=== PATIENT | male | born 1945 | race Caucasian/White ===

== ENCOUNTER 2016-12-27 06:48 | Observation (INO) ==
--- NOTE | 2016-12-27 07:14 | EKG Report ---
Stationary ECG Study [facility] ER Test Date: 12/27/2016 6:53:47 AM Pat Name: MICHELLE LARIOS Department: Room: Gender: M [employer] Records Supervisor: : 1945 Requested by: Sudarshan Mckeon Order Number: [id number] Reading MD: JOYCE LAWRENCE Intervals [place] Rate: 72 P: 41 LA: 177 QRS: 39 QRSD: 98 T: 38 QT: 381 QTc: 405 Interpretive Statements SINUS RHYTHM at 72 bpm WNL Electronically Signed On 12-30-16 12:08:00 CDT by JOYCE LAWRENCE [email or web address]
[2016-12-27 07:32] LABS: Basophils % 0.1 % (0.0-0.8); Hematocrit 31.8 VOL% (42.0-52.0); Hemoglobin 9.8 GM/DL (14.0-18.0); Immature Granulocytes % 0.5 %; Immature Granulocytes Absolute 0.09 #; Lymphocytes # 0.8 10*3/uL (1.4-4.0); Mean Corpuscular HGB Conc 30.8 GM/DL (32-36); Mean Corpuscular Hemoglobin 28 PG (27-34); Mean Corpuscular Volume 90.6 FL (87-102); Mean Platelet Volume 9.4 FL (9.6-12.0); Monocytes # 0.6 10*3/uL (0.11-0.8); Monocytes % 3.5 % (1.7-12.7); Neutrophils # 15.2 10*3/uL (1.4-7.4); Neutrophils % 90.9 % (38.7-73.9); Platelet Count 234 T/CUMM (130-400); Red Blood Count 3.51 MC/CUMM (3.8-5.5); Red Cell Distribution Width 13.9 % (9.3-17.3); White Blood Count 16.7 T/CUMM (4-12)
[2016-12-27] MEDS ORDERED: ENOXAPARIN 100 MG/ML SYRINGE SUBCUT STA (07:49)
[2016-12-27 07:57] LABS: Band Neutrophils 1 % (0-10); Hypochromasia 1+; Lymphocytes 4 % (20-55); Microcytosis 1+; Ovalocytes Few; Segmented Neutrophils 92 % (50-85); Total Cells Counted 100
[2016-12-27 07:58] LABS: Platelet Estimate Normal
[2016-12-27] MEDS ORDERED: ENOXAPARIN 100 MG/ML SYRINGE SUBCUT ONE (08:01)
[2016-12-27 08:02] LABS: Alanine Aminotransferase 24 U/L (16-61); Albumin 3.5 G/DL (3.4-5.0); Alkaline Phosphatase 66 U/L (45-117); Aspartate Amino Transferase 13 U/L (0-37); Bilirubin,Total < 0.39 MG/DL (0.2-1.0); Blood Urea Nitrogen 35 MG/DL (7-18); Calcium 8.6 MG/DL (8.5-10.1); Glucose 153 MG/DL (74-106); Magnesium 2.2 MG/DL (1.8-2.4); Osmolality,Calculated 285.7 MOS/KG (273-304); Potassium 5.6 MMOL/L (3.5-5.1); Sodium 138 MMOL/L (136-145); Total Protein 6.9 G/DL (6.4-8.3); Troponin I Only < 0.015 NG/ML (0.00-0.045)
--- NOTE | 2016-12-27 08:05 | XRay Report ---
XR chest 2V Indication: Chest pain Comparison: Chest x-ray dated October 12, 2016 Technique: Frontal and lateral views of the chest. Findings: Continued mild cardiomegaly without jim pulmonary edema. Chronic change of the lungs. Moderate hiatal hernia. Visualized osseous and surrounding soft tissue structures appear grossly unchanged. IMPRESSION: As above. PROCEDURE INTERPRETED AT [facility] DEPARTMENT OF RADIOLOGY Final Report Signed by: Dr Lon Burrell
--- NOTE | 2016-12-27 08:32 | Emergency Department Note ---
Alen Brown Manpreet, am scribing for, and in the presence of, Sudarshan Sullivan MD 07:54. Laurie Brown Phillip K, MD, personally performed the services described in this documentation, ascribed by Addison Lowry in my presence, and it is both accurate and complete 832 . Arrival - Arrival Chief Complaint: Chest Pain Stated Complaint: chest pain down left arm ED Nursing Triage Note: pt to triage with c/o chest pain radiating to left arm. Mode of Arrival: Ambulatory Limitations: No Limitations Source: Patient - History of Present Illness HPI Narrative: Pt is a 72 y/o male, with PMHx of HTN, SD, CAD, CVA, NIDDM, HLD, PNA, and GERD, who presents to the ED with CC of CP radiating to his left arm onset last night at 1900. Pt was just sitting around when the pain onset. Pt also c/o SOB and nausea, but denies fever, cough, RUBIO, or diaphoresis. Pt is currently in pain and describes the pain as 7/10 and sharp to the left side of his chest. Dr. Cooper is the pt's bar catcher and had a heart catheterziation in which showed October angioplasty in ostial lesion of the circumflex. Pt has not taken his Plavix for the past 5 days and [facility]. Pt states his pain is worse upon movement. No other pains/complaints reported to the ED. Allergies/Adverse Reactions: Allergies Allergy/AdvReac Type Severity Reaction Status Date / Time No Known Allergies Allergy Verified 12/27/16 06:55 Home Medications: Home Medications Medication Instructions Recorded Confirmed Type Aspirin [Ecotrin] 81 mg PO QAM 01/19/15 12/27/16 History Atorvastatin Calcium 40 mg PO DAILY 01/19/15 12/27/16 History Dorzolamide 2% Oph Soln [Trusopt 1 drop BOTH EYES BID 01/19/15 12/27/16 History 2% Oph Soln] Clopidogrel [Plavix] 75 mg PO DAILY #30 tablet 01/20/15 12/27/16 Rx Magnesium Oxide 400 mg PO BID #60 tablet 01/20/15 12/27/16 Rx Metformin HCl 1,000 mg PO BID W/MEALS #0 01/20/15 12/27/16 Rx Nitroglycerin Sl Tab [Nitrostat] 0.4 mg SL Q5M PRN #100 tablet 01/20/15 Rx Latanoprost [Latanoprost 0.005 % 1 drop BOTH EYES BID 09/27/15 12/27/16 History Oph Soln] Lisinopril 10 mg PO DAILY 09/27/15 12/27/16 History Metoprolol Tartrate Tab [Lopressor 12.5 mg PO BID 09/27/15 12/27/16 History Tab] glipiZIDE [Glipizide] 10 mg PO BID 09/27/15 12/27/16 History HYDROcodone/ACETAMIN 10-325 [Crook 1 tablet PO QID PRN 12/27/15 12/27/16 History 10-325] Ondansetron [Ondansetron Odt] 8 mg PO Q4H PRN #20 tab.rapdis 02/21/16 12/27/16 Rx Pantoprazole Tab [Protonix Tab] 40 mg PO DAILY 02/21/16 12/27/16 History clonazePAM [Clonazepam] 0.5 mg PO BEDTIME 10/12/16 12/27/16 History Review of System - Review of System 12 point system: reviewed and no additional remarkable complaints except as stated - Review of System Constitutional: Absent: chills, diaphoresis, fever Respiratory: Absent: cough, respiratory distress, wheezing Cardiovascular: Present: chest pain Gastrointestinal: Absent: abdominal pain, nausea, vomiting Musculoskeletal: Present: arm pain Neurological: Absent: headache, weakness, numbness, paresthesias Medical,Surgical,& Family Hx - Medical History Cardio: History of: Cardiac Dysrhythmia, CAD, Hypertension, SD (at age of 40), Cardiovascular Problems (stent placed in Oct to LAD. Dr. Cooper) Neurology: History of: Cerebrovascular Accident (left sided 2 months ago) No history of: Seizures HEENT: History of: Eye Problem, Glaucoma No history of: Ear Problem, Dental Problems, Oral Cancer, HEENT Problems Endocrine: History of: Diabetes Mellitus (NIDDM), Dyslipidemia No history of: Adrenal Disease, Diabetes Mellitus (IDDM), Thyroid Disorder, Endocrine Cancer, Endocrine Problems Respiratory: History of: Pneumonia Renal: History of: Renal Problems Genitourinary: History of: Kidney Stones, Prostate Problems (hx of prostate CA) Gastrointestinal: History of: GERD, GI Problems (Gallbladder surgery) Musculoskeletal: History of: Back/Neck Problems (pinched nerve and 2 spurs in neck), Degenerative Disk Disease, Herniated Disk (2 disks in lower back), Musculoskeletal Problems (Arthritis) Other: History of: Cancer (Prostate) - Surgical History Cardiac Surgeries: Sugical HX of: Cardiac Catheterization (stent) Neurologic Surgeries: Patient denies: Neurologic Surgery HEENT Surgeries: Surgical HX of: Eye Surgery (Nerve surgery R/T glaucoma) Abdominal Surgeries: Surgical HX of: Abdominal Surgery, Cholecystectomy, Colonoscopy (last year), EGD Reproductive Surgeries: Surgical HX of;: Genitourinary Surgery, Prostate Surgery (Prostate CA removal Dr. Mills in 2001) - Family History Family History: Reports;: Family Cancer (daughter, son, sisters), Family Diabetes (Daughter, mother, sisters), Family Heart Disease (Father, brother, mother, sisters), Family Hypertension (Father, Mother, Sister, Brother), Family Stroke (Mother and Sister) - Social History Smoking Status: Former smoker Frequency of Alcohol Use: None Type of Drug Use: None Exam Vital Signs: Vital Signs Temperature 97.9 F 12/27/16 06:51 Pulse Rate 60 12/27/16 08:00 Respiratory Rate 16 12/27/16 08:00 Blood Pressure 118/55 12/27/16 08:00 O2 Sat by Pulse Oximetry 99 12/27/16 08:00 - General General appearance: alert, in no apparent distress - Head Head exam: Present: atraumatic, normocephalic, normal inspection - Eye Eye exam: Present: normal appearance, PERRL, EOMI - ENT ENT exam: Present: normal exam, normal oropharynx, mucous membranes moist, TM's normal bilaterally - Neck Neck exam: Present: normal inspection, full ROM, trachea midline. Absent: tenderness - Chest Chest inspection: Present: normal inspection, symmetric chest wall rise. Absent : tenderness - Respiratory Respiratory exam: Present: normal lung sounds bilaterally. Absent: accessory muscle use, respiratory distress - Cardiovascular Cardiovascular exam: Present: regular rate, normal rhythm, murmur (2/6 systolic murmur ). Absent: normal heart sounds - Abdominal Exam Abdominal exam: Present: soft, normal bowel sounds. Absent: distention, tenderness - Extremities Exam Extremities exam: Present: normal inspection, full ROM. Absent: tenderness - Back Exam Back exam: Present: normal inspection, full ROM. Absent: tenderness - Neurological Exam Neurological exam: Present: alert, oriented X3, CN II-XII intact, reflexes normal - Psychiatric Psychiatric exam: Present: normal affect, normal mood - Skin Skin exam: Present: warm, dry, intact, normal color. Absent: pallor Results - Labs CBC & BMP: 12/27/16 07:06 12/27/16 07:06 Lab Results: I have reviewed the patients labs Labs: Laboratory Tests 12/27/16 07:06 WBC 16.7 H RBC 3.51 L Hgb 9.8 L Hct 31.8 L MCV 90.6 MCH 28 MCHC 30.8 L RDW 13.9 Plt Count 234 MPV 9.4 L Neut % (Auto) 90.9 H Lymph % (Auto) 5.0 L Neut # (Auto) 15.2 H Lymph # (Auto) 0.8 L Laboratory Tests 12/27/16 07:06 Total Counted 100 Segmented Neutrophils 92 H Band Neutrophils 1 Lymphocytes 4 L Monocytes 3 Platelet Estimate Normal Hypochromasia 1+ Microcytosis 1+ Ovalocytes Few Laboratory Tests 12/27/16 12/27/16 07:06 07:06 Sodium 138 Potassium 5.6 H Chloride 108 H Carbon Dioxide 23 Anion Gap 12.6 BUN 35 H Creatinine 1.40 H GFR Calculation 58 BUN/Creatinine Ratio 25.00 H Glucose 153 H Calculated Osmolality 285.7 Calcium 8.6 Magnesium 2.2 Total Bilirubin < 0.39 AST 13 ALT 24 Alkaline Phosphatase 66 Troponin I < 0.015 B-Natriuretic Peptide 145 H Total Protein 6.9 Albumin 3.5 Globulin 3.4 Albumin/Globulin Ratio 1.0 L - EKG EKG results: interpreted by ERMD, WNL, sinus rhythm - Diagnostic Findings Procedure: X-ray: report reviewed by me ("Chest X-ray: Continued mild cardiomegaly without jim pulmonary edema. Chronic change of the lungs. Moderate hiatal hernia. Visualized osseous and surrounding soft tissue structures appear grossly unchanged.") Disposition Clinical Impression: Chest pain, Unstable angina pectoris Case discussed with: patient, patient's physician Disposition: Still a Patient Condition: Guarded Additional Instructions: Admit to Dr. Torres
[2016-12-27] MEDS ORDERED: ONDANSETRON 4 MG/2 ML VIAL IV PRN (09:04)
[2016-12-27] MEDS ORDERED: MAGNESIUM SULF RIDER 2 GM in PREMIX 1 EACH IV PRN (09:04)
[2016-12-27] MEDS ORDERED: POTASSIUM CHLORIDE 20 MEQ TABLET PO PRN (09:04)
[2016-12-27] MEDS ORDERED: INSULIN REGULAR 100 UNIT/ML SUBCUT ONE (09:04)
[2016-12-27] MEDS ORDERED: ZALEPLON 5 MG CAPSULE PO PRN (09:04)
--- NOTE | 2016-12-27 09:11 | Cardiology History & Physical ---
Assessment and Plan - Time spent with patient Time spent with patient: Greater than 30 minutes (1) Chest pain Status: Acute Current Visit: Yes (2) CAD (coronary artery disease) Status: Chronic Current Visit: No (3) Diabetes Status: Chronic Current Visit: No (4) Dyslipidemia Status: Chronic Current Visit: No (5) History of CVA (cerebrovascular accident) Status: Chronic Current Visit: No (6) Hypertension Status: Chronic Current Visit: No (7) History of MT (myocardial infarction) Status: Acute Current Visit: Yes History of Present Illness Chief complaint: chest pain History of present illness: Dermatological Surgeon: Dr. Cooper Patient was seen and examined in the emergency room 12. Mr. Magana is a 71 year old male with known history of coronary artery disease , routinely followed by Dr. Cooper. Cardiac risk factors include: Known CAD, diabetes, hypertension, dyslipidemia, former smoker (quit in 1979), advanced age and family history of premature CAD (father at age 84 from MT, mother had MT at age 73, brother at age 56 from MT and sister at age 68 from MT). Past medical history includes: Previous myocardial infarction and history of CVA. Most recent heart catheterization was performed October 2016. He underwent balloon angioplasty of circumflex at that time. Per catheterization report, artery was too small for stent placement. Echocardiogram performed September 2016 revealed preserved EF 60%. Grade 2 diastolic dysfunction. Mild concentric LVH. Mild TR. Estimated pulmonary artery systolic pressure 36 mmHg. He was last seen in the cardiology clinic November 2016. He was given permission at that time to hold Plavix for back injection. He was instructed to resume dual antiplatelet therapy when cleared per pain management. Patient presented to the emergency department this morning with complaints of midsternal chest tightness. He reports that this began around 8:00 last night while sitting on the couch. This continued for at least 2 hours. Around 10:00 he decided to go to bed. He reports he was still having mild pain at that time. When he awoke this morning he continued to have mild discomfort. He reports radiation to the left arm. Associated with shortness of breath, nausea and diaphoresis. Exertion worsened his chest pain. When he walked to the mailbox to get his mail he reports that his chest pain became so severe he could hardly stand it. He then took all of his medications with the exception of Plavix hoping that that would help his discomfort. He had no relief. At that time, he felt he should be further evaluated in the emergency department. Of note, patient reports that his symptomology is very similar as before when he has underwent PCI. Patient has been admitted under cardiology's service. Patient seen and examined in the emergency room. Family at bedside. Patient is currently without complaints of chest pain, heaviness or tightness. Cardiac biomarkers negative 1. EKG without ischemic changes. Will follow trend. Patient has been off his Plavix now for 5-6 days as he had a back injection yesterday. Patient's chest pain is concerning for angina. He has received a therapeutic dose of Lovenox in the emergency department. Full dose aspirin ordered. Patient is currently without complaints of chest pain. He has received therapeutic dose of Lovenox. Full dose aspirin ordered. I will keep patient n.p.o. and discuss with Dr. Watson regarding the need for heart catheterization. I will hold metformin and initiate IV fluids. Continue beta- yareli, ALEX inhibitor, lipid-lowering agent, nitrates and aspirin. Further plan and addendum to follow per Dr. Watson. IMPRESSION AND PLAN: 1. CHEST PAIN - Concerning for angina. Patient has been off Plavix for 5-6 days now for back injection. Cardiac biomarkers negative 1. EKG without ischemic changes. Will follow trend. Patient is currently without complaints of chest pain. He has received therapeutic dose of Lovenox. Full dose aspirin ordered. I will keep patient n.p.o. and discuss with Dr. Watson regarding the need for heart catheterization. I will hold metformin and initiate IV fluids. Continue beta-yareli, ALEX inhibitor, lipid-lowering agent, nitrates, Plavix and aspirin. 2. KNOWN CAD, WITH HISTORY OF MYOCARDIAL INFARCTION - Continue aspirin, beta- yareli, ALEX inhibitor, lipid-lowering agent, nitrates and Plavix. 3. DIABETES - Holding metformin for possible catheterization today. Sliding scale insulin. Accu-Cheks before meals and at bedtime. 4. HYPERTENSION - Blood pressures are stable. All medications have been reinitiated. Monitor blood pressure and adjust medications accordingly this hospitalization. 5. DYSLIPIDEMIA - Continue lipid-lowering agent. Lipid panel in the morning. 6. HISTORY OF CVA - Stable. Continue aspirin. Home Medications Medication Instructions Recorded Confirmed Type Aspirin [Ecotrin] 81 mg PO QAM 01/19/15 12/27/16 History Atorvastatin Calcium 40 mg PO DAILY 01/19/15 12/27/16 History Dorzolamide 2% Oph Soln [Trusopt 1 drop BOTH EYES BID 01/19/15 12/27/16 History 2% Oph Soln] Clopidogrel [Plavix] 75 mg PO DAILY #30 tablet 01/20/15 12/27/16 Rx Magnesium Oxide 400 mg PO BID #60 tablet 01/20/15 12/27/16 Rx Metformin HCl 1,000 mg PO BID W/MEALS #0 01/20/15 12/27/16 Rx Nitroglycerin Sl Tab [Nitrostat] 0.4 mg SL Q5M PRN #100 tablet 01/20/15 Rx Latanoprost [Latanoprost 0.005 % 1 drop BOTH EYES BID 09/27/15 12/27/16 History Oph Soln] Lisinopril 10 mg PO DAILY 09/27/15 12/27/16 History Metoprolol Tartrate Tab [Lopressor 12.5 mg PO BID 09/27/15 12/27/16 History Tab] glipiZIDE [Glipizide] 10 mg PO BID 09/27/15 12/27/16 History HYDROcodone/ACETAMIN 10-325 [Covel 1 tablet PO QID PRN 12/27/15 12/27/16 History 10-325] Ondansetron [Ondansetron Odt] 8 mg PO Q4H PRN #20 tab.rapdis 02/21/16 12/27/16 Rx Pantoprazole Tab [Protonix Tab] 40 mg PO DAILY 02/21/16 12/27/16 History clonazePAM [Clonazepam] 0.5 mg PO BEDTIME 10/12/16 12/27/16 History Allergies Allergy/AdvReac Type Severity Reaction Status Date / Time No Known Allergies Allergy Verified 12/27/16 06:55 - Constitutional Constitutional: Present: as per HPI, weakness. Absent: chills, fatigue, fever(s ), frequent falls, lethargy, malaise, weight gain, weight loss - Cardiovascular Cardiovascular: Present: as per HPI, chest pain at rest, chest pain with activity, diaphoresis, dyspnea, dyspnea on exertion, radiating jaw, neck or arm pain. Absent: edema, lightheadedness, orthopnea, palpitations, PND - Respiratory Respiratory: Present: as per HPI, dyspnea, dyspnea on exertion. Absent: hemoptysis, wheezing, snoring, pain on inspiration, change in phlegm color - Gastrointestinal Gastrointestinal: Present: as per HPI, nausea. Absent: abdominal pain, change in bowel habits, coffee ground emesis, dyspepsia, dysphagia, heartburn, hematemesis, hematochezia, loose stools, melena, vomiting - Neurological Neurological: Present: as per HPI. Absent: abnormal gait, abnormal speech, behavioral changes, dizziness, frequent falls, headache(s), syncope Medical,Surgical,& Family Hx - Medical History Cardio: History of: CAD, Hypertension, MT (at age of 40), Cardiovascular Problems (stent placed in Jan to . Dr. Cooper) Neurology: History of: Cerebrovascular Accident No history of: Seizures HEENT: History of: Eye Problem, Glaucoma No history of: Ear Problem, Dental Problems, Oral Cancer, HEENT Problems Endocrine: History of: Diabetes Mellitus (NIDDM), Dyslipidemia No history of: Adrenal Disease, Diabetes Mellitus (IDDM), Thyroid Disorder, Endocrine Cancer, Endocrine Problems Respiratory: History of: Pneumonia Renal: History of: Renal Problems Genitourinary: History of: Kidney Stones, Prostate Problems (hx of prostate CA) Gastrointestinal: History of: GERD, GI Problems (Gallbladder surgery) Musculoskeletal: History of: Back/Neck Problems (pinched nerve and 2 spurs in neck), Degenerative Disk Disease, Herniated Disk (2 disks in lower back), Musculoskeletal Problems (Arthritis) Other: History of: Cancer (Prostate) - Surgical History Cardiac Surgeries: Sugical HX of: Cardiac Catheterization (stent) Neurologic Surgeries: Patient denies: Neurologic Surgery HEENT Surgeries: Surgical HX of: Eye Surgery (Nerve surgery R/T glaucoma) Abdominal Surgeries: Surgical HX of: Abdominal Surgery, Cholecystectomy, Colonoscopy (last year), EGD Reproductive Surgeries: Surgical HX of;: Genitourinary Surgery, Prostate Surgery (Prostate CA removal Dr. Mills in 2001) - Family History Family History: Reports;: Family Cancer (daughter, son, sisters), Family Diabetes (Daughter, mother, sisters), Family Heart Disease (Father, brother, mother, sisters), Family Hypertension (Father, Mother, Sister, Brother), Family Stroke (Mother and Sister) - Social History Smoking Status: Former smoker Frequency of Alcohol Use: None Type of Drug Use: None Marital Status: Single Lives With:: Alone Functional capacity: independent ambulation Cardiology Physical Exam - Constitutional Vitals: Vital Signs Temp Pulse Resp BP Pulse Ox 97.9 F 60 16 114/55 98 12/27/16 06:51 12/27/16 08:30 12/27/16 08:30 12/27/16 08:30 12/27/16 08:30 Intake and Output 12/26/16 12/27/16 12/27/16 22:59 06:59 14:59 Other: Weight 180 lb Exam: General: Appears well with no apparent distress. Pleasant and cooperative. Appears comfortable. HEENT: PERRL, normocephalic, atraumatic. Mucous membranes moist. No jaundice noted. Conjunctiva moist and clear, sclerae anicteric Neck: No JVD/HJR, no thyromegaly or lymphadenopathy noted. No carotid bruit appreciated Cardiac: Regular rate and rhythm. Grade 2-3 systolic murmur Lungs: Clear to auscultation without accessory muscle use to assist the respiratory pattern. Not requiring oxygen. Abdomen: Soft, bowel sounds normoactive. Nontender and nondistended. No abdominal bruit or thrill noted. No masses noted. Extremities: No clubbing, cyanosis noted. No edema noted. Upper extremity pulses 2+. Lower extremity pulses 2+. Capillary refill less than 3 seconds. Skin: No unusual lesions or rashes. No skin breakdown appreciated. Neuro: Awake, alert and oriented 3. Moves all extremities well without hemiparesis or paralysis. No essential tremor is appreciated. Result/EKG - Labs CBC & BMP: 12/27/16 07:06 12/27/16 07:06 Lab Results: I have reviewed the past 24 hour labs Labs: Laboratory Results - last 24 hr 12/27/16 12/27/16 12/27/16 07:06 07:06 07:06 WBC 16.7 H RBC 3.51 L Hgb 9.8 L Hct 31.8 L MCV 90.6 MCH 28 MCHC 30.8 L RDW 13.9 Plt Count 234 MPV 9.4 L Neut % (Auto) 90.9 H Lymph % (Auto) 5.0 L Harrison % (Auto) 3.5 Eos % (Auto) 0.0 Baso % (Auto) 0.1 Neut # (Auto) 15.2 H Lymph # (Auto) 0.8 L Harrison # (Auto) 0.6 Eos # (Auto) 0.0 Baso # (Auto) 0.0 Total Counted 100 Immature Gran % 0.5 Nucleated RBC % 0.0 Immature Gran # 0.09 Segmented Neutrophils 92 H Band Neutrophils 1 Lymphocytes 4 L Monocytes 3 Nucleated RBCs # 0.00 Platelet Estimate Normal Immature Plt Fraction 0.0 Hypochromasia 1+ Microcytosis 1+ Ovalocytes Few Sodium 138 Potassium 5.6 H Chloride 108 H Carbon Dioxide 23 Anion Gap 12.6 BUN 35 H Creatinine 1.40 H GFR Calculation 58 BUN/Creatinine Ratio 25.00 H Glucose 153 H Calculated Osmolality 285.7 Calcium 8.6 Magnesium 2.2 Total Bilirubin < 0.39 AST 13 ALT 24 Alkaline Phosphatase 66 Troponin I < 0.015 B-Natriuretic Peptide 145 H Total Protein 6.9 Albumin 3.5 Globulin 3.4 Albumin/Globulin Ratio 1.0 L - EKG EKG results: interpreted by me, sinus rhythm
[2016-12-27 09:21] LABS: INR 0.9; PT Patient Result 9.9 SECS; Partial Thromboplastin Time 22.6 SECS (0-40)
[2016-12-27] MEDS ORDERED: ASPIRIN CHEW 81 MG TABLET PO STA (09:24)
[2016-12-27] MEDS ORDERED: ASPIRIN 325 MG TABLET ONE (09:29)
[2016-12-27] MEDS ORDERED: SODIUM CHLORIDE 0.45% 1,000 ML IV SCH (09:30)
[2016-12-27] MEDS ORDERED: ACETAMINOPHEN 325 MG TABLET PO PRN (09:38)
[2016-12-27] MEDS ORDERED: DOCUSATE SODIUM 100 MG CAPSULE PO PRN (09:38)
[2016-12-27] MEDS ORDERED: TICAGRELOR 90 MG TABLET PO STA (10:14)
[2016-12-27] MEDS ORDERED: TICAGRELOR 90 MG TABLET ONE (10:15)
[2016-12-27] MEDS: NITROGLYCERIN 2% OINT 1 INCH/GM PACK TOP SCH ×3 (10:17→17:45)
[2016-12-27] MEDS ORDERED: CLOPIDOGREL 75 MG TABLET PO SCH (10:30)
[2016-12-27] MEDS ORDERED: DEXTROSE 50% 25 GM/50 ML SYRINGE IV PRN (10:33)
[2016-12-27] MEDS ORDERED: GLUCAGON 1 MG VIAL IM PRN (10:33)
[2016-12-27] MEDS ORDERED: fentaNYL 100 MCG/2 ML VIAL ONE (11:20)
[2016-12-27] MEDS ORDERED: HEPARIN/NACL 0.9% 2 UNITS/ML 1,000 ML IV ONE (11:20)
[2016-12-27] MEDS ORDERED: NITROGLYCERIN DRIP 50 MG/250 ML BOTTLE IV ONE (11:20)
[2016-12-27] MEDS ORDERED: MIDAZOLAM 2 MG/2 ML VIAL ONE ×2 (11:20→11:34)
[2016-12-27] MEDS ORDERED: VERAPAMIL 5 MG/2 ML VIAL ONE (11:20)
--- NOTE | 2016-12-27 11:27 | History and Physical Update ---
Sedation H&P Update - History and Physical H&P was reviewed, the patient examined and there: are no changes in the patients condition since last H&P was completed. - Dictation Physical: refer to H&P completed by admitting physician - Physical Exam Mental Status: alert and oriented Heart: regular rate and rhythm Lung: clear to auscultation Abdomen: within normal limits Vitals: within normal limits - Sedation Plan for Sedation: moderate Patient Consent: Procedure disscussed with patient and patinet has consented., Risks and benefits were discussed with patient,including infection,, bleeding, injury to surrounding structures, seizure, temporary nerve, Patient understands and accepts potential risks/benefits and agrees to, proceed. ASA Class: III Airway Assessment: Class II: Soft palate, uvula, fauces visible
[2016-12-27] MEDS ORDERED: diphenhydrAMINE 50 MG/1 ML VIAL ONE (11:36)
[2016-12-27] MEDS ORDERED: CLOPIDOGREL 300 MG TABLET PO ONE (12:00)
[2016-12-27 12:03] LABS: Troponin I Only < 0.015 NG/ML (0.00-0.045)
--- NOTE | 2016-12-27 12:11 | Cardiac Catheterization ---
Date of Procedure:: 12/27/16 Pre-op Diagnosis: Chest pain consistent with angina and known coronary artery disease with no clopidogrel 5 days status post POBA 2 months Post-op diagnosis: other (No significant change in angiogram since October 2016) Procedure: Procedures: 1. Left heart catheterization resting hemodynamics 2. Selective left and right coronary angiography After signed an informed consent was obtained, the patient was prepped and draped in standard fashion for right radial access. Time out was recorded. 0.5 mL of 1% lidocaine were infiltrated in the skin and subcutaneous tissue overlying the right radial artery and Seldinger technique was utilized with a Angiocath to obtain access to the right radial artery. A KedzohumDesktime glide wire was then advanced into the midforearm under fluoroscopic guidance. The Angiocath was removed and a 6 Faroese Terumo glide sheath was placed over the Glidewire. The sheath was aspirated and flushed and then 5 mg of verapamil and 200 g of nitroglycerin were given through the sheath. At this time an 035 J-wire was used to guide a [place]field 6 Faroese catheter into the central aorta across the aortic valve and into the ventricle. A 10 mL injection of contrast was used for ventriculography in the VILLAREAL projection. Pressure measurements and pullback measurements were obtained. The Warfield catheter was then used to engage the left main coronary artery and multiple orthogonal views of the left system were obtained. The catheter then was torqued into the right coronary artery and orthogonal views of the right system were obtained. The catheter was then exchanged over the wire. The sheath was aspirated and flushed. The cutter operator helper reviewed the films. And a TR band was placed over the glide sheath and used for hemostasis. Total contrast exposure 70 cc of omnipaque Total x-ray exposure: 3.4 min fluoroscopy time and 252 mGy air Kerma Findings: 1. EF not assessed 2. Hemodynamics LV: 110/3 EDP:5 Ao:104/59 3. Left main: There is mild luminal irregularity in the left main. No high- grade stenosis at the ROM appears to approach 20% 4: Left anterior descending artery: This artery is small it has mild disease in the previously deployed stent was widely patent this and its jailed diagonal better than they did in October of this past year 5: Left circumflex artery: This is a very small nondominant vessel. Shortly after leaving the AV groove this vessel promptly bifurcates there is a large obtuse marginal and a very small previously intervened upon left circumflex and had a POBA in . This vessel has stenosis that appears to be about 80 or 90% ostially segment that is up to 70% and tapers out to normal very small vessel. It is appears to be 2 mm or less. It looks unchanged from prior to last p.o. twice daily and it has SHAHZAD-3 flow 6: Right coronary artery: This is a dominant vessel and has approximately 40% plaque in the mid AV groove portion of the right coronary artery Assessment: 1. Coronary disease as described above with no significant interval change compared to 2016 prior POBA of this very small circumflex 2. Minimal in-stent restenosis and limb loss a previous LAD stent 3. Mild mid RCA stenosis unchanged from previous angiogram Plan: 1. Therapeutic lifestyle changes and maximize pharmacologic therapy 2. Resume dual antiplatelet therapy 3. Add Ranexa and other anti-anginal therapies Implants: None Anesthesia: moderate conscious sedation Surgeon / Physician: Rachna Watson Straw Hat Brim Raiser Operator: none Estimated blood loss: none Specimens: none sent Condition: stable Disposition: floor - Medications / Follow-up
[2016-12-27] MEDS: INSULIN REGULAR 100 UNIT/ML SUBCUT SCH ×2 (12:55→19:05)
--- NOTE | 2016-12-27 14:13 | EKG Report ---
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
[2016-12-27 14:27] LABS: Troponin I Only < 0.015 NG/ML (0.00-0.045)
[2016-12-27 18:42] LABS: Troponin I Only < 0.015 NG/ML (0.00-0.045)
[2016-12-27] MEDS: MAGNESIUM OXIDE 400 MG TABLET PO SCH (20:53)
[2016-12-27] MEDS: RANOLAZINE 500 MG TABLET PO SCH (20:53)
[2016-12-27] MEDS: glipiZIDE 10 MG TABLET PO SCH (20:53)
[2016-12-27] MEDS: METOPROLOL TARTRATE 25 MG TABLET PO SCH (20:54)
[2016-12-27] MEDS ORDERED: DORZOLAMIDE 2% OPH SOLN 10 ML BOTTLE BOTH EYES SCH (21:00)
[2016-12-27] MEDS ORDERED: LATANOPROST 0.005% OPH SOLN 2.5 ML BOTTLE BOTH EYES SCH (21:00)
[2016-12-28] MEDS: INSULIN REGULAR 100 UNIT/ML SUBCUT SCH ×2 (00:49→05:59)
[2016-12-28] MEDS: NITROGLYCERIN 2% OINT 1 INCH/GM PACK TOP SCH ×2 (01:36→05:59)
[2016-12-28 05:50] LABS: Basophils % 0.1 % (0.0-0.8); Eosinophils % 0.3 % (0.00-10.9); Hematocrit 30.1 VOL% (42.0-52.0); Hemoglobin 9.3 GM/DL (14.0-18.0); Immature Granulocytes % 0.4 %; Immature Granulocytes Absolute 0.05 #; Lymphocytes # 1.6 10*3/uL (1.4-4.0); Lymphocytes % 13.7 % (21.2-54.2); Mean Corpuscular HGB Conc 30.9 GM/DL (32-36); Mean Corpuscular Hemoglobin 28 PG (27-34); Mean Corpuscular Volume 90.1 FL (87-102); Mean Platelet Volume 9.9 FL (9.6-12.0); Monocytes # 0.6 10*3/uL (0.11-0.8); Neutrophils # 9.1 10*3/uL (1.4-7.4); Neutrophils % 80.5 % (38.7-73.9); Platelet Count 225 T/CUMM (130-400); Red Blood Count 3.34 MC/CUMM (3.8-5.5); Red Cell Distribution Width 14.2 % (9.3-17.3); White Blood Count 11.4 T/CUMM (4-12)
[2016-12-28 06:33] LABS: Calcium 8.9 MG/DL (8.5-10.1); Magnesium 2.4 MG/DL (1.8-2.4); Osmolality,Calculated 291.8 MOS/KG (273-304); Potassium 4.7 MMOL/L (3.5-5.1); Risk Ratio 4.32
--- NOTE | 2016-12-28 07:24 | EKG Report ---
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
[2016-12-28 08:18] VITALS: BP 152/80
[2016-12-28] MEDS: METOPROLOL TARTRATE 25 MG TABLET PO SCH (08:56)
[2016-12-28] MEDS: MAGNESIUM OXIDE 400 MG TABLET PO SCH (08:57)
[2016-12-28] MEDS: glipiZIDE 10 MG TABLET PO SCH (08:57)
[2016-12-28] MEDS: RANOLAZINE 500 MG TABLET PO SCH (08:57)
[2016-12-28] MEDS ORDERED: CLOPIDOGREL 75 MG TABLET PO SCH (09:00)
[2016-12-28] MEDS ORDERED: LISINOPRIL 10 MG TABLET PO SCH (09:00)
[2016-12-28] MEDS ORDERED: PANTOPRAZOLE 40 MG TABLET PO SCH (09:00)
[2016-12-28] MEDS ORDERED: ATORVASTATIN 40 MG TABLET PO SCH (09:00)
[2016-12-28] MEDS ORDERED: ASPIRIN EC 81 MG TABLET PO SCH (09:00)
--- NOTE | 2016-12-28 10:31 | Discharge Summary ---
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 Cooper Mr. Magana is a 71 year old male with known history of coronary artery disease , routinely followed by Dr. Cooper. Cardiac risk factors include: Known CAD, diabetes, hypertension, dyslipidemia, former smoker (quit in 1979), advanced age and family history of premature CAD (father at age 84 from [place], mother had [place] at age 73, brother at age 56 from [place] and sister at age 68 from [place]). Past medical history includes: Previous myocardial infarction and history of CVA. Most recent heart catheterization was performed October 2016. He underwent balloon angioplasty of circumflex at that time. Per catheterization report, artery was too small for stent placement. Echocardiogram performed September 2016 revealed preserved EF 60%. Grade 2 diastolic dysfunction. Per his report, his Plavix has been on hold for approximately 5 days for back injection. He underwent back injection yesterday and was told he could resume Plavix today. Unfortunately, he did not take his Plavix this morning either Patient presented to [facility] with complaints of chest discomfort that was concerning for angina. Restenosis of ostial circumflex angioplasty was suspected. patient underwent heart catheterization per Dr. Rachna Watson December 27, 2016 with the following impressions noted: IMPRESSIONS: 1. EF not assessed 2. Left main: There is mild luminal irregularity in the left main. No high- grade stenosis at the ROM appears to approach 20% 3. Left anterior descending artery: This artery is small it has mild disease in the previously deployed stent was widely patent this and its jailed diagonal better than they did in October of this past year 4. Left circumflex artery: This is a very small nondominant vessel. Shortly after leaving the AV groove this vessel promptly bifurcates there is a large obtuse marginal and a very small previously intervened upon left circumflex and had a POBA in . This vessel has stenosis that appears to be about 80 or 90% ostially segment that is up to 70% and tapers out to normal very small vessel. It is appears to be 2 mm or less. It looks unchanged from prior to last p.o. twice daily and it has SHAHZAD-3 flow 5. Right coronary artery: This is a dominant vessel and has approximately 40% plaque in the mid AV groove portion of the right coronary artery 6. Coronary disease as described above with no significant interval change compared to 2016 prior POBA of this very small circumflex 7. Minimal in-stent restenosis and limb loss a previous LAD stent 8. Mild mid RCA stenosis unchanged from previous angiogram PLAN: 1. Therapeutic lifestyle changes and maximize pharmacologic therapy 2. Resume dual antiplatelet therapy 3. Add Ranexa and other anti-anginal therapies Post catheterization patient was transported back to the telemetry unit in stable condition. He has done well post catheterization has been without complications. Right wrist is soft without bleeding or hematoma. Right radial pulse 2+. Patient is without complaints of chest pain, heaviness or tightness. Without complaints of dyspnea. Patient has ambulated around the telemetry unit without difficulty. Dual antiplatelet therapy has been resumed. I have discussed with the patient regarding the importance of absolute compliance. He verbalized understanding. Ranexa was added to his medication regimen. He has been hemodynamically stable. Labs stable this morning. Creatinine stable at 1.2. EF was not assessed this hospitalization as he had a documented preserved EF of 60% September 2016. He has been instructed to resume his metformin Sunday morning. He verbalized understanding. Patient is anxious for discharge home. Having felt that he has not maximal medical therapy, he will be discharged home in stable condition. He will follow with Dr. Cooper in 2 weeks for groin check, EKG and CBC. He will also follow up with Dr. Pedraza for an outpatient sleep study as he has symptoms concerning for obstructive sleep apnea. Patient verbalizes understanding of discharge instructions and discharge medications He will be discharged home with his preadmission medications with addition of Ranexa and has been instructed to resume Plavix. - Time spent with patient Time with patient DS: Greater than 30 minutes Diagnosis - Discharge Diagnosis (1) Chest pain Status: Resolved (2) CAD (coronary artery disease) Status: Chronic (3) Diabetes Status: Chronic (4) Dyslipidemia Status: Chronic (5) History of CVA (cerebrovascular accident) Status: Chronic (6) Hypertension Status: Chronic (7) History of ME (myocardial infarction) Status: Acute Specialty Discharge - Follow Up or Referrals Follow up with: John Cooper MD [Physician] - 01/08/17 8:00 am (Groin check, CBC, EKG) Jessie Pedraza MD [Physician] - (Outpatient sleep evaluation. Symptoms concerning for obstructive sleep apnea.) Discharge Plan - Discharge Data Disposition: Disch To Home/Self Care Condition at Discharge: Stable Discharge Diet: heart healthy, low fat, low cholesterol, low salt diet Activity: no lifting (Avoid heavy lifting and squatting 1 week), other (Post- cath expectations) Hygiene: may shower, other (Post cath expectations) Weight Bearing at Discharge: weight bear as tolerated, other (Post-cath expectations) Driving: other (Post-cath expectations) Contact your physician if you experience:: fever over 101, Difficulty voiding, Redness or swelling, Nausea/Vomiting, Shortness of breath, Bleeding, pain uncontrolled by pain medications - Discharge Medications New Ranolazine [Ranexa] 500 mg PO BID #60 tablet Continue Aspirin [Ecotrin] 81 mg PO QAM Atorvastatin Calcium 40 mg PO DAILY Dorzolamide 2% Oph Soln [Trusopt 2% Oph Soln] 1 drop BOTH EYES BID Magnesium Oxide 400 mg PO BID #60 tablet Nitroglycerin Sl Tab [Nitrostat] 0.4 mg SL Q5M PRN #100 tablet PRN Reason: Chest Pain Clopidogrel [Plavix] 75 mg PO DAILY #30 tablet Metformin HCl 1,000 mg PO BID W/MEALS #0 Metoprolol Tartrate Tab [Lopressor Tab] 12.5 mg PO BID Lisinopril 10 mg PO DAILY Latanoprost [Latanoprost 0.005 % Oph Soln] 1 drop BOTH EYES BID glipiZIDE [Glipizide] 10 mg PO BID HYDROcodone/ACETAMIN 10-325 [[place] 10-325] 1 tablet PO QID PRN PRN Reason: Pain Pantoprazole Tab [Protonix Tab] 40 mg PO DAILY Ondansetron [Ondansetron Odt] 8 mg PO Q4H PRN #20 tab.rapdis PRN Reason: Nausea clonazePAM [Clonazepam] 0.5 mg PO BEDTIME - Follow Up or Referral - Forms/Instructions Instructions: Coronary Artery Disease (GEN), Left Heart Catheterization (DC), Heart Healthy Diet (ED) Additional Discharge Instructions: Resume metformin Sunday morning. Exam - Constitutional Vitals: Period Temp Pulse Resp BP Sys/Mckeon Pulse Ox Last 24 Hr 97.4 F-98.4 F 51-89 12-18 101-161/52-101 95-99 Exam: General: Appears well with no apparent distress. Pleasant and cooperative. Appears comfortable. HEENT: PERRL, normocephalic, atraumatic. Mucous membranes moist. No jaundice noted. Conjunctiva moist and clear, sclerae anicteric Neck: No JVD/HJR, no thyromegaly or lymphadenopathy noted. No carotid bruit appreciated Cardiac: Regular rate and rhythm. No murmur rub or gallop. Lungs: Clear to auscultation without accessory muscle use to assist the respiratory pattern. Not requiring oxygen. Abdomen: Soft, bowel sounds normoactive. Nontender and nondistended. No abdominal bruit or thrill noted. No masses noted. Extremities: No clubbing, cyanosis noted. No edema noted. Upper extremity pulses 2+. Lower extremity pulses 2+. Capillary refill less than 3 seconds. Right radial cath site soft without bleeding or hematoma. Right radial pulse 2+ . Skin: No unusual lesions or rashes. No skin breakdown appreciated. Neuro: Awake, alert and oriented 3. Moves all extremities well without hemiparesis or paralysis. No essential tremor is appreciated. Discharge Results Procedures and tests throughout hospitalization: Pending Orders 12/27/16 10:21 CL heart Routine 12/27/16 10:40 MRSA Surveillence, Inf Control Routine 12/29/16 04:00 Basic Metabolic Panel IN AM Comp Blood Count Auto Diff IN AM Magnesium IN AM 12/30/16 04:00 Basic Metabolic Panel IN AM Comp Blood Count Auto Diff IN AM Magnesium IN AM Labs on day of discharge: Labs from last 24 hours 12/28/16 12/28/16 12/28/16 05:51 04:35 04:35 WBC 11.4 D RBC 3.34 L Hgb 9.3 L Hct 30.1 L MCV 90.1 MCH 28 MCHC 30.9 L RDW 14.2 Plt Count 225 MPV 9.9 Neut % (Auto) 80.5 H Lymph % (Auto) 13.7 L Whiteside % (Auto) 5.0 Eos % (Auto) 0.3 Baso % (Auto) 0.1 Neut # (Auto) 9.1 H Lymph # (Auto) 1.6 Whiteside # (Auto) 0.6 Eos # (Auto) 0.0 Baso # (Auto) 0.0 Immature Gran % 0.4 Nucleated RBC % 0.0 Immature Gran # 0.05 Nucleated RBCs # 0.00 Immature Plt Fraction 0.0 Sodium 144 Potassium 4.7 Chloride 110 H Carbon Dioxide 28 Anion Gap 10.7 BUN 28 H Creatinine 1.20 GFR Calculation 70 BUN/Creatinine Ratio 23.00 H Glucose 104 POC Glucose 112 H Calculated Osmolality 291.8 Calcium 8.9 Magnesium 2.4 Total Creatine Kinase CK-MB (CK-2) Troponin I Triglycerides 220 H Cholesterol 160 LDL Cholesterol 91.0 VLDL Cholesterol 44.0 HDL Cholesterol 37 L Heart Disease Risk Ratio 4.32 12/28/16 12/27/16 12/27/16 00:33 17:53 17:34 WBC RBC Hgb Hct MCV MCH MCHC RDW Plt Count MPV Neut % (Auto) Lymph % (Auto) [place]ites[place] % (Auto) Eos % (Auto) Baso % (Auto) Neut # (Auto) Lymph # (Auto) [place] # (Auto) Eos # (Auto) Baso # (Auto) Immature Gran % Nucleated RBC % Immature Gran # Nucleated RBCs # Immature Plt Fraction Sodium Potassium Chloride Carbon Dioxide Anion Gap BUN Creatinine GFR Calculation BUN/Creatinine Ratio Glucose POC Glucose 189 H 241 H Calculated Osmolality Calcium Magnesium Total Creatine Kinase 72 CK-MB (CK-2) 1.8 Troponin I < 0.015 Triglycerides Cholesterol LDL Cholesterol VLDL Cholesterol HDL Cholesterol Heart Disease Risk Ratio 12/27/16 12/27/16 12/27/16 13:50 12:52 10:59 WBC RBC Hgb Hct MCV MCH MCHC RDW Plt Count MPV Neut % (Auto) Lymph % (Auto) [place]ites[place] % (Auto) Eos % (Auto) Baso % (Auto) Neut # (Auto) Lymph # (Auto) [place] # (Auto) Eos # (Auto) Baso # (Auto) Immature Gran % Nucleated RBC % Immature Gran # Nucleated RBCs # Immature Plt Fraction Sodium Potassium Chloride Carbon Dioxide Anion Gap BUN Creatinine GFR Calculation BUN/Creatinine Ratio Glucose POC Glucose 137 H Calculated Osmolality Calcium Magnesium Total Creatine Kinase 70 73 CK-MB (CK-2) 1.8 1.7 Troponin I < 0.015 < 0.015 Triglycerides Cholesterol LDL Cholesterol VLDL Cholesterol HDL Cholesterol Heart Disease Risk Ratio - Imaging and Cardiology Cardiology Procedure: report reviewed by DS: Provider Date of admission: 12/27/16 09:38 Primary care physician: . No PCP Attending physician on admission: Rachna Watson DO Consults: 12/27/16 09:04 Consult to Cardiac Rehabilitation [CONS] Routine Reason for Cardiac Rehabilitation: Risk Factor Modification Other Consult Comment: Evaluate and recommend 12/27/16 11:53 Consult to Cardiac Rehabilitation [CONS] Routine Reason for Cardiac Rehabilitation: Risk Factor Modification Other Consult Comment: Evaluate and recommend 12/27/16 12:00 Consult to Cardiac Rehabilitation [CONS] Routine Reason for Cardiac Rehabilitation: Risk Factor Modification Other Consult Comment: Evaluate and recommend Discharging clinician: Rosanne Armstrong NP Expected date of discharge: 12/28/16
[2016-12-28] MEDS ORDERED: ENOXAPARIN 40 MG/0.4 ML SYRINGE SUBCUT SCH (21:00)
== END 2016-12-28 11:37 | disposition home or self-care (01) ==
LOC: N.ED 06:48 → N.EDINP 06:48 → N.CC 10:11 → N.TELES 17:46
PROVIDERS: ADMIT Internal Medicine Cardiovascular Disease; ATTEND Internal Medicine Cardiovascular Disease
PROC: CLCCHCL (ICD-10-PCS; 2016-12-27 12:45)

== ENCOUNTER 2021-07-07 08:41 | Inpatient (IN) ==
[2021-07-07 09:50] LABS: Basophils % 0.3 % (0.0-0.8); Hematocrit 44.9 VOL% (42.0-52.0); Hemoglobin 13.9 GM/DL (14.0-18.0); Immature Granulocytes % 0.3 %; Immature Granulocytes Absolute 0.02 #; Lymphocytes # 0.5 10*3/uL (1.4-4.0); Lymphocytes % 6.3 % (21.2-54.2); Mean Corpuscular Volume 94.7 FL (87-102); Mean Platelet Volume 9.5 FL (9.6-12.0); Monocytes % 8.2 % (1.7-12.7); Neutrophils % 84.9 % (38.7-73.9); Platelet Count 156 T/CUMM (130-400); Red Blood Count 4.74 MC/CUMM (3.8-5.5); Red Cell Distribution Width 14.4 % (9.3-17.3); White Blood Count 7.2 T/CUMM (4-12)
[2021-07-07] MEDS ORDERED: SODIUM CHLORIDE 0.9% 1,000 ML IV STA (09:53)
[2021-07-07 10:01] LABS: Albumin 3.8 G/DL (3.4-5.0); Bilirubin,Total 0.4 MG/DL (0.20-1.00); Calcium 9.1 MG/DL (8.5-10.1); Osmolality,Calculated 281.2 MOS/KG (273-304); Potassium 3.8 MMOL/L (3.5-5.1); Total Protein 8.1 G/DL (6.4-8.2)
[2021-07-07 12:02] LABS: Bacteria,Urine Occasional /HPF (Few); Hyaline Casts,Urine 3 /LPF (0-3); Mucus,Urine Occasional /LPF (Occasional); RBC,Urine <1 /HPF (0-4); Squamous Epithelial Cell,Urine Occasional /HPF (0-10); Urine Appearance Clear (Clear); Urine Color Yellow (Yellow)
[2021-07-07 12:03] LABS: Bilirubin,Urine Small mg/dL (Negative); Blood, Urine Negative (Negative); Glucose,Urine (UA) Negative (Negative); Ketones,Urine Trace mg/dL (Negative); Nitrite,Urine Negative (Negative); Protein,Urine 1+ mg/dL (Negative); Urine Specific Gravity 1.025 (1.001-1.035); Urine Urobilinogen 0.2 eU/dL (<2.0)
[2021-07-07] MEDS ORDERED: GLUCAGON 1 MG VIAL IM PRN (12:07)
[2021-07-07] MEDS ORDERED: MORPHINE 2 MG/1 ML SYRINGE IV PRN (12:09)
[2021-07-07] MEDS ORDERED: hydrALAZINE 20 MG/1 ML VIAL IV PRN (12:09)
[2021-07-07] MEDS ORDERED: ACETAMINOPHEN 325 MG TABLET PO PRN (12:09)
[2021-07-07] MEDS ORDERED: ONDANSETRON 4 MG/2 ML VIAL IV PRN (12:09)
[2021-07-07] MEDS ORDERED: DEXTROSE 10% 250 ML BAG IV PRN (12:16)
[2021-07-07] MEDS: PANTOPRAZOLE 40 MG VIAL IV SCH (13:24)
[2021-07-07] MEDS: LACTATED RINGERS 1,000 ML IV SCH ×2 (13:26→23:20)
[2021-07-07] MEDS: HEPARIN 5,000 UNIT/1 ML VIAL SUBCUT SCH (15:53)
[2021-07-07] MEDS: INSULIN LISPRO 100 UNIT/ML SUBCUT SCH ×2 (17:40→22:31)
[2021-07-08] MEDS: HEPARIN 5,000 UNIT/1 ML VIAL SUBCUT SCH ×2 (00:56→14:48)
[2021-07-08 05:16] LABS: Basophils % 0.5 % (0.0-0.8); Eosinophils % 0.3 % (0.00-10.9); Hematocrit 38.4 VOL% (42.0-52.0); Hemoglobin 11.8 GM/DL (14.0-18.0); Immature Granulocytes % 0.3 %; Immature Granulocytes Absolute 0.01 #; Lymphocytes # 0.5 10*3/uL (1.4-4.0); Lymphocytes % 13.9 % (21.2-54.2); Mean Corpuscular HGB Conc 30.7 GM/DL (32-36); Mean Corpuscular Volume 94.3 FL (87-102); Mean Platelet Volume 9.7 FL (9.6-12.0); Monocytes % 12.3 % (1.7-12.7); Neutrophils % 72.7 % (38.7-73.9); Platelet Count 129 T/CUMM (130-400); Red Blood Count 4.07 MC/CUMM (3.8-5.5); Red Cell Distribution Width 14.3 % (9.3-17.3); White Blood Count 3.8 T/CUMM (4-12)
[2021-07-08 05:39] LABS: Calcium 8.8 MG/DL (8.5-10.1); Osmolality,Calculated 287.5 MOS/KG (273-304); Potassium 3.4 MMOL/L (3.5-5.1)
[2021-07-08 06:19] LABS: Anisocytosis 1+; Band Neutrophils 21 % (0-10); Burr Cells Few; Lymphocytes 16 % (20-55); Macrocytosis Slight; Platelet Estimate Adequate; Segmented Neutrophils 52 % (50-85); Total Cells Counted 100
[2021-07-08] MEDS: SODIUM BICARB INJ 100 MEQ in SODIUM CHLORIDE 0.45% 1,000 ML IV SCH ×2 (09:31→22:56)
[2021-07-08] MEDS: PANTOPRAZOLE 40 MG VIAL IV SCH (09:39)
[2021-07-08] MEDS: INSULIN LISPRO 100 UNIT/ML SUBCUT SCH ×4 (09:41→20:21)
[2021-07-08] MEDS: LACTATED RINGERS 1,000 ML IV SCH (10:24)
[2021-07-08] MEDS ORDERED: NITROGLYCERIN SL 0.4 MG TABLET SL PRN (13:24)
[2021-07-08] MEDS: DORZOLAMIDE 2% OPH SOLN 10 ML BOTTLE BOTH EYES SCH (20:07)
[2021-07-08] MEDS: LATANOPROST 0.005% OPH SOLN 2.5 ML BOTTLE BOTH EYES SCH (21:50)
[2021-07-09] MEDS: PANTOPRAZOLE 40 MG TABLET PO SCH (06:04)
[2021-07-09 06:52] LABS: Basophils % 0.5 % (0.0-0.8); Eosinophils # 0.1 10*3/uL (0.0-0.87); Eosinophils % 2.3 % (0.00-10.9); Hematocrit 37.3 VOL% (42.0-52.0); Hemoglobin 11.9 GM/DL (14.0-18.0); Lymphocytes # 0.5 10*3/uL (1.4-4.0); Lymphocytes % 24.1 % (21.2-54.2); Mean Corpuscular HGB Conc 31.9 GM/DL (32-36); Mean Corpuscular Volume 91.2 FL (87-102); Neutrophils % 54.1 % (38.7-73.9); Platelet Count 116 T/CUMM (130-400); Red Blood Count 4.09 MC/CUMM (3.8-5.5); Red Cell Distribution Width 14.1 % (9.3-17.3); White Blood Count 2.2 T/CUMM (4-12)
[2021-07-09 07:15] LABS: Eosinophils 3 % (0-10); Hypochromia Slight; Lymphocytes 27 % (20-55); Microcytosis Slight; Ovalocytes Slight; Platelet Estimate Decreased; Segmented Neutrophils 56 % (50-85); Total Cells Counted 100
[2021-07-09 07:24] LABS: Calcium 8.7 MG/DL (8.5-10.1); Osmolality,Calculated 286.1 MOS/KG (273-304); Potassium 2.9 MMOL/L (3.5-5.1)
[2021-07-09] MEDS ORDERED: POTASSIUM CHLORIDE 20 MEQ TABLET PO ONE (08:23)
[2021-07-09] MEDS: INSULIN LISPRO 100 UNIT/ML SUBCUT SCH ×4 (08:26→22:15)
[2021-07-09] MEDS ORDERED: MAGNESIUM SULF RIDER 2 GM/50 ML PREMIX IV ONE (08:27)
[2021-07-09] MEDS: CHOLESTYRAMINE 4 GM PACK PO SCH ×2 (09:54→21:25)
[2021-07-09] MEDS: ATORVASTATIN 40 MG TABLET PO SCH (09:55)
[2021-07-09] MEDS: ASPIRIN EC 81 MG TABLET PO SCH (09:55)
[2021-07-09] MEDS: LATANOPROST 0.005% OPH SOLN 2.5 ML BOTTLE BOTH EYES SCH ×2 (10:00→22:15)
[2021-07-09] MEDS: CLOPIDOGREL 75 MG TABLET PO SCH (10:00)
[2021-07-09] MEDS: DORZOLAMIDE 2% OPH SOLN 10 ML BOTTLE BOTH EYES SCH ×2 (10:00→22:15)
[2021-07-09] MEDS: POTASSIUM CHLORIDE 20 MEQ TABLET PO SCH (12:51)
[2021-07-09] MEDS: SODIUM BICARB INJ 100 MEQ in SODIUM CHLORIDE 0.45% 1,000 ML IV SCH (14:31)
[2021-07-09] MEDS ORDERED: POTASSIUM CHLORIDE RIDER 10 MEQ/100 ML PREMIX IV PRN (15:04)
[2021-07-09] MEDS: POTASSIUM CHLORIDE 20 MEQ TABLET PO PRN ×4 (15:28→21:26)
[2021-07-10] MEDS: SODIUM BICARB INJ 100 MEQ in SODIUM CHLORIDE 0.45% 1,000 ML IV SCH (01:38)
[2021-07-10] MEDS: PANTOPRAZOLE 40 MG TABLET PO SCH (05:42)
[2021-07-10 07:22] LABS: Basophils % 0.5 % (0.0-0.8); Eosinophils # 0.1 10*3/uL (0.0-0.87); Eosinophils % 3.1 % (0.00-10.9); Hematocrit 33.7 VOL% (42.0-52.0); Hemoglobin 10.6 GM/DL (14.0-18.0); Lymphocytes # 0.9 10*3/uL (1.4-4.0); Lymphocytes % 44.3 % (21.2-54.2); Mean Corpuscular HGB Conc 31.5 GM/DL (32-36); Mean Corpuscular Volume 93.4 FL (87-102); Mean Platelet Volume 9.6 FL (9.6-12.0); Monocytes % 17.5 % (1.7-12.7); Neutrophils % 34.6 % (38.7-73.9); Red Blood Count 3.61 MC/CUMM (3.8-5.5); Red Cell Distribution Width 14.2 % (9.3-17.3); White Blood Count 1.9 T/CUMM (4-12)
[2021-07-10 07:23] LABS: Platelet Count 119 T/CUMM (130-400)
[2021-07-10 07:32] LABS: Calcium 8.4 MG/DL (8.5-10.1); Osmolality,Calculated 289.7 MOS/KG (273-304); Potassium 4.2 MMOL/L (3.5-5.1)
[2021-07-10 07:42] LABS: Band Neutrophils 2 % (0-10); Eosinophils 6 % (0-10); Hypochromia Slight; Lymphocytes 47 % (20-55); Microcytosis Slight; Segmented Neutrophils 34 % (50-85); Total Cells Counted 100
[2021-07-10 07:43] LABS: Atypical Lymphocytes Few
[2021-07-10] MEDS: INSULIN LISPRO 100 UNIT/ML SUBCUT SCH (08:06)
[2021-07-10 08:48] VITALS: BP 121/54
[2021-07-10] MEDS: LATANOPROST 0.005% OPH SOLN 2.5 ML BOTTLE BOTH EYES SCH (09:41)
[2021-07-10] MEDS: DORZOLAMIDE 2% OPH SOLN 10 ML BOTTLE BOTH EYES SCH (09:41)
[2021-07-10] MEDS: ASPIRIN EC 81 MG TABLET PO SCH (09:41)
[2021-07-10] MEDS: CHOLESTYRAMINE 4 GM PACK PO SCH (09:42)
[2021-07-10] MEDS: POTASSIUM CHLORIDE 20 MEQ TABLET PO SCH (09:42)
[2021-07-10] MEDS: CLOPIDOGREL 75 MG TABLET PO SCH (09:42)
[2021-07-10] MEDS: ATORVASTATIN 40 MG TABLET PO SCH (09:42)
== END 2021-07-10 11:34 | disposition home or self-care (01) | DRG 392 ==
LOC: N.ED 08:41 → N.5E 12:07 → SUATTDRO 12:07 → N.5E 13:53
PROVIDERS: ADMIT Internal Medicine; ATTEND Hospitalist